=== PATIENT | female | born 1940 | race Caucasian/White ===

== ENCOUNTER → 2019-04-12 13:22 | Outpatient (CLI) | payer MEDICARE, OTHER, SELFPAY | PROVIDERS: Referring Provider Family Medicine; Visit Provider Family Medicine | DX: R06.02 Shortness of breath (principal) | CPT/HCPCS: 85379 ==

== ENCOUNTER → 2019-06-07 | Outpatient (CLI) | payer MEDICARE, OTHER, SELFPAY ==
--- NOTE | 2019-06-07 09:19 | RAD_ITS ---
STUDY: X-RAY - ESOPHAGUS (BARIUM SWALLOW) WITH FLUOROSCOPY REASON FOR EXAM: Female, 78 years old. Gastroesophageal reflux. TECHNIQUE: 24 view(s) of the esophagus were obtained following swallowing of barium. FLUOROSCOPY TIME (if supplied): (0:31) minutes/seconds COMPARISON: None. FINDINGS: There is no demonstrated esophageal foreign body. There is no demonstrated stricture or mucosal abnormality. Normal gastroesophageal junction, without a demonstrated hiatal hernia. The patient ingested a 12 mm tablet of barium without any difficulty. There is atherosclerotic calcification of the aortic arch with tortuosity of the descending aorta. Normal visualized pulmonary parenchyma. Normal visualized osseous structures of the thorax. RAD/Esophagus Only IMPRESSION: Normal plain film x-ray examination (barium swallow) of the esophagus. Electronically Signed: Jason Alexandre, at 8:41 EDT , Service support ,
== END | disposition home or self-care (01) ==
LOC: RAD 09:17
PROVIDERS: Family Provider Family Medicine; PCP Family Medicine; Referring Provider Nurse Practitioner Adult Health; Visit Provider Nurse Practitioner Adult Health
DX: K21.9 Gastro-esophageal reflux disease without esophagitis (principal); R13.10 Dysphagia, unspecified
CPT/HCPCS: 74220

== ENCOUNTER 2019-10-11 12:51 | Emergency (ER) | payer MEDICARE, OTHER, SELFPAY ==
[2019-10-11 12:51] VITALS: BP 126/68; PULSE 73; RESP 16; TEMP 36.3; O2SAT 95; BMI 39.2
--- NOTE | 2019-10-11 13:14 | EKG12_ITS ---
Test Reason : POSS AFIB Blood Pressure : / mmHG Vent. Rate : 064 BPM Atrial Rate : 064 BPM P-R Int : 212 ms QRS Dur : 080 ms QT Int : 440 ms P-R-T Axes : 079 019 029 degrees QTc Int : 453 ms Suspect unspecified pacemaker failure Sinus rhythm with 1st degree A-V block with Premature supraventricular complexes Otherwise normal ECG Confirmed by JULIANE FRIED, XUAN ([id number]), newspaper editor managing RAJEEV MCKENNA ([id number]) on 10/12/2019 1:54:55 PM Referred By: DAVID Confirmed By:XUAN CARDOOZ MD
[2019-10-11 13:41] LABS: Absolute Lymphocyte Count 2.11 X10^3/uL (0.83-4.51); Absolute Neutrophil Count 5.7 X10^3/uL (2.0-7.7); Basophil% 1.1 % (0-1); Eosinophil# 0.19 X10^3/uL; Eosinophils% 2.1 % (0-5); Hematocrit 36.3 % (37-47); Hemoglobin 11.3 g/dL (12.0-15.0); Lymphocyte # 2.11 X10^3/ul (4.0); Lymphocyte % 23.3 % (19-41); Mean Corp Hgb Conc 31.1 g/dL (32-36); Mean Corpuscular Hgb 26.7 pg (27.0-32.0); Mean Corpuscular Volume 85.6 fL (81-99); Mean Platelet Vol. 9.3 fl (6.2-12.0); Monocyte# 0.93 X10^3/uL; Monocyte% 10.3 % (0-10); NRBC Flagged by Analyzer 0 % (0-5); Neutrophil # 5.72 X10^3/uL (2.7-7.7); Platelet Count 285 K/mm3 (150-450); RBC Distribution Width CV 15.1 % (11.6-14.6); RBC Distribution Width SD 47.3 fl (35.1-43.9); Red Blood Count 4.24 M/mm3 (4.2-5.4); White Blood Count 9.1 K/mm3 (4.4-11.0)
[2019-10-11 13:56] LABS: Anion Gap 7 (5-15); BUN 15 mg/dL (7-18); BUN/Creat Ratio 18.3 RATIO (10-20); Calcium,Total 8.9 mg/dL (8.5-10.1); Chloride 105 mmol/L (98-107); Creatinine, Serum 0.82 mg/dL (0.55-1.02); EST Glomerular Filtration Rate 72 mL/min (>60); Est Glom Filt Rate - Afr Amer 87 mL/min (>60); Estimated Creatinine Clearance 50.88 ml/min; Glucose 94 mg/dL (74-106); Potassium 3.7 mmol/L (3.5-5.1); Sodium Level 138 mmol/L (136-145)
--- NOTE | 2019-10-11 14:19 | ED.VISSUMM ---
- ER Visit Summary Date of Service: 10/11/19 Chief Complaint: Questionable new onset atrial fibrillation History of Present Illness: The patient is a 79 F who comes in from the outpatient [facility]. She was getting outpatient test for an upcoming surgery. They did an EKG and they were concerned about new onset atrial fibrillation. Patient has no history of this. She denies palpitations or heart racing. She did have an episode of chest pain a week ago that lasted for 10 minutes and then went away. She saw Dr. Valles with cardiology in the past and has nitroglycerin at home to use if she gets chest pain. She also feels a little bit weak but states that this is chronic. Physical Examination: Vital signs reviewed. HEENT exam unremarkable. Heart is regular rate and rhythm without murmurs. Lungs are clear to auscultation. Abdomen is soft and nontender. Extremities reveal no edema. Skin exam normal. Neurologic exam normal. Test Results: EKG here is a sinus rhythm with multiple PACs. No ST changes. Hemoglobin 11.3. Troponin normal. Emergency Department Course and Treatment: The patient had an EKG which is a sinus rhythm with multiple PACs. She has a spinal stimulator which likely caused artifact which caused a computer misinterpretation of the outpatient EKG. She clearly has P waves on this EKG in the emergency department. Her laboratory studies are unremarkable. I feel she can be discharged. 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 I will give her the follow-up information with Dr. Armenta Treatment Plan: [] Disposition: Discharge Impression: Weakness This note was generated with [employer] dictation software. It may contain incorrect words, spelling, and punctuation that were not noted in review of the chart prior to signing ED Disposition - Plan for ED Patient: Referrals: Shawn Bauer MD [Primary Care Provider] -
--- NOTE | 2019-10-11 14:22 | ED.DEP ---
ED Disposition - Plan for ED Patient: Disposition: Home or Assisted Living Instructions: WEAKNESS, Unk Cause Referrals: Shawn Bauer MD [Primary Care Provider] - Samuel Armenta MD [STAFF PHYSICIAN] -
== END 2019-10-11 14:39 | disposition home or self-care (01) ==
PROVIDERS: Emergency Provider Emergency Medicine; Family Provider Family Medicine; PCP Family Medicine
DX: R53.1 Weakness (principal)
CPT/HCPCS: 80048; 84484; 85025; 93005; 99282; A4216

== ENCOUNTER → 2019-11-03 14:44 | Outpatient (CLI) | payer MEDICARE, OTHER, SELFPAY ==
[2019-11-03 12:32] VITALS: BMI 39.1
[2019-11-03 16:47] LABS: BNP,B-Type NATRIURETIC PEPTIDE 112.5 pg/mL (0-100)
== END ==
PROVIDERS: Family Provider Family Medicine; PCP Family Medicine; Referring Provider Internal Medicine Cardiovascular Disease; Visit Provider Internal Medicine Cardiovascular Disease
DX: I10 Essential (primary) hypertension (principal); R06.09 Other forms of dyspnea
CPT/HCPCS: 36415; 83880

== ENCOUNTER 2020-05-09 05:54 | Emergency (ER) | payer MEDICARE, OTHER, SELFPAY ==
[2019-11-03 12:32] VITALS: BMI 39.1
[2020-05-09] VITALS (8 sets, daily range): BP systolic 167–198; BP diastolic 50–79; PULSE 63–76; RESP 18–24; TEMP 36.4–36.8; O2SAT 92–99; BMI 44.4
--- NOTE | 2020-05-09 06:05 | RAD_ITS ---
STUDY: X-RAY CHEST REASON FOR EXAM: Female, 79 years old. C/O COUGH AND SOB -- WAS JUST TAKEN OFF OF DIURETIC LAST WEEK TECHNIQUE: Single AP portable view of the chest. COMPARISON: Prior comparison studies are not available for review at this time. FINDINGS: The interstitial markings are mildly prominent at the lung bases. There is a blunted appearance of the left costophrenic angle. There is mild cardiac enlargement. Normal mediastinum and bassam. Normal visualized pulmonary arteries. Normal visualized aortic arch and descending thoracic aorta. There are diffuse degenerative changes of the visualized thoracic spine. Normal visualized ribs, clavicles, and shoulders. There is no demonstrated abnormality of the visualized soft tissue structures of the upper abdomen. RAD/Chest 1 View (Portable) IMPRESSION: There is increased density at the left lung base at the costophrenic angle which may represent a small left effusion with atelectasis. Interstitial markings are prominent in the lung bases suggesting atelectasis possible developing infiltrates. Electronically Signed: Gabriela Salinas MD at 6:56 EDT Tel , Service support ,
--- NOTE | 2020-05-09 06:05 | EKG12_ITS ---
Test Reason : SOB Blood Pressure : / mmHG Vent. Rate : 070 BPM Atrial Rate : 070 BPM P-R Int : 228 ms QRS Dur : 082 ms QT Int : 452 ms P-R-T Axes : 040 019 048 degrees QTc Int : 488 ms Suspect unspecified pacemaker failure Sinus rhythm with 1st degree A-V block with Premature supraventricular complexes Otherwise normal ECG Confirmed by OSIRIS DOMINGUEZ ([id number]), editor farm journal YESY CENTENO ([id number]) on 05/11/2020 7:37:59 AM Referred By: PIETRO Confirmed By:OSIRIS DOMINGUEZ
--- NOTE | 2020-05-09 06:07 | ED.DCSUM_ITS ---
- ER Visit Summary Date of Service: 05/09/20 Chief Complaint: Progressively more short of breath since May 05 after her doctor stopped her hydrochlorothiazide History of Present Illness: The patient is a 79 F history of COPD not on O2, hypertension and colitis. Patient states that she has been progressively short of more short of breath since about May 05. She has had a problem recently with a rash that they thought was secondary to medication. Her doctor made the decision to stop her hydrochlorothiazide. She denies chest pain. She denies hemoptysis. She has had increased swelling in both lower extremities. No prior history of DVT or PE. She denies any melena. No fever. She does have a non productive cough. Physical Examination: Older female accompanied by her son. Initial vital signs are stable and afebrile. Her initial blood pressure was 1 7761. Pulse ox is 95 % on room air she is afebrile. She does not look septic or toxic. HEENT exam unremarkable. Neck nontender no lymphadenopathy. No JVD. Lungs equal and symmetrical. Few scattered expiratory wheezes bilaterally. No rales no rhonchi. Heart regular rhythm rate about 80 no murmur. Abdomen soft nontender normal bowel sounds no peritoneal signs. Obese. Patient moving all 4 extremities. She has 1+ pitting edema both lower extremities. There is no cords. Calves are nontender. Neurologically she is awake alert with no focal motor deficits. Test Results: Chest portable 1 view showed vascular congestion otherwise no acute abnormality. Read both by the radiologist and myself. EKG shows sinus rhythm rate of 70 with a first-degree AV block. Unchanged from prior EKG. CBC showed a white count 1.8. Hemoglobin of 10.2 with her baseline being 11. No bands. Chemistries unremarkable normal creatinine and gap. LFTs unremarkable. Troponin normal. BNP is pending. Both the BNP results in the COVID test will be checked by the oncoming morning physician. Emergency Department Course and Treatment: Older female with nonproductive cough and shortness of breath progressively worsened after stopping her hydrochlorothiazide. Differential diagnosis would include CHF, pulmonary edema also rule out DC, pneumonia, COVID 19 versus other etiologies. Treated with a dose of IV Lasix in the emergency department. Repeat exam patient is doing well at 7:45 AM. I think her history and her exam with bilateral lower extremity edema and her chest x-ray are consistent with vascular congestion. Historically makes sense because they just took her off her hydrochlorothiazide several days ago. Treatment Plan: Patient be started on Lasix 40 mg a day. Follow-up with her primary care physician. Watch her blood pressures closely. Return if feeling worse. Clinically she has no obvious signs of this being an acute infection or cardiac event. She has no history or substantial risk factors for PE. Disposition: Discharge Impression: Acute dyspnea secondary to pulmonary edema History of COPD History of hypertension This note was generated with [employer] software. It may contain incorrect words, spelling, and punctuation that were not noted in review of the chart prior to signing <Cecilio Huntley - Last Filed: 05/09/20 08:09> - ER Visit Summary Took over care of this patient. After the Lasix, she felt like she needed to urinate but had a hard time so nurses put a Cortes catheter in her temporarily, and after a couple hours of waiting for her COVID-19 test to come back, which was negative, she put out a total of almost 3 L of urine. She felt much better, she was able to ambulate without hypoxemia, and she was hypoxic in the 80s with light exertion just prior to the Lasix. She wants to go home. I think that is reasonable. There is a prescription for Lasix written for her. Her blood pressure is elevated but she is supposed to be on double the medication according to her doctors new advice, and she did not double up on it yet today, she will do that now and follow-up with her doctor. We discussed reasons to return and they are comfortable with that plan. Of note, her BNP returned at around 250 which is a little elevated and consistent with fluid overload, making Lasix the appropriate treatment for now. This note was generated with [employer] software. It may contain incorrect words, spelling, and punctuation that were not noted in review of the chart prior to signing <Danny Contreras - Last Filed: 05/09/20 11:25> ED Disposition <Cecilio Huntley - Last Filed: 05/09/20 08:09> <Danny Contreras - Last Filed: 05/09/20 11:25> - Plan for ED Patient: Disposition: Home or Assisted Living Instructions: ED Dyspnea Prescriptions: Furosemide [Lasix] 40 mg PO DAILY #30 tab Prescription Printed Referrals: Shawn Bauer MD [Primary Care Provider] - As soon as possible Additional Instructions: I am going to start you on Lasix which should decrease the fluid collection and swelling in her legs and help your breathing. You will take 1 pill a day. Watch her blood pressure because this may lower your blood pressure but it works similar to your prior higher your chlorothiazide. Follow-up with your doctor this week to ensure that you are improving. Return to the ER if you are feeling worse.
[2020-05-09 06:21] LABS: Absolute Lymphocyte Count 1.11 X10^3/uL (0.83-4.51); Absolute Neutrophil Count 9.4 X10^3/uL (2.0-7.7); Basophil# 0.09 X10^3/uL; Basophil% 0.8 % (0-1); Eosinophil# 0.14 X10^3/uL; Eosinophils% 1.2 % (0-5); Hematocrit 33.6 % (37-47); Hemoglobin 10.2 g/dL (12.0-15.0); Lymphocyte # 1.11 X10^3/ul (4.0); Lymphocyte % 9.4 % (19-41); Mean Corp Hgb Conc 30.4 g/dL (32-36); Mean Corpuscular Hgb 26.3 pg (27.0-32.0); Mean Corpuscular Volume 86.6 fL (81-99); Monocyte# 1.02 X10^3/uL; Monocyte% 8.7 % (0-10); NRBC Flagged by Analyzer 0 % (0-5); Neutrophil # 9.38 X10^3/uL (2.7-7.7); Neutrophil % 79.6 % (47-70); Platelet Count 294 K/mm3 (150-450); RBC Distribution Width CV 15.2 % (11.6-14.6); RBC Distribution Width SD 47.6 fl (35.1-43.9); Red Blood Count 3.88 M/mm3 (4.2-5.4); White Blood Count 11.8 K/mm3 (4.4-11.0)
--- NOTE | 2020-05-09 06:32 | ED.RN ---
RECEIVED CALL FROM LAB, BTMP RESULTS WILL NOT RETURN UNTIL APPROX 0800 D/T QC.
[2020-05-09 06:39] LABS: ALB/GLOB Ratio 0.6 RATIO (0.9-2.4); AST(SGOT) 19 U/L (15-37); Alanine Aminotransfer ALT/SGPT 20 U/L (13-56); Albumin, Serum 3.2 g/dL (3.2-5.0); Alkaline Phosphatase 126 U/L (45-117); Anion Gap 7 (5-15); BUN 13 mg/dL (7-18); BUN/Creat Ratio 17.4 RATIO (10-20); Chloride 102 mmol/L (98-107); Creatinine, Serum 0.75 mg/dL (0.55-1.02); EST Glomerular Filtration Rate 80 mL/min (>60); Est Glom Filt Rate - Afr Amer 96 mL/min (>60); Estimated Creatinine Clearance 38.35 ml/min; Glucose 125 mg/dL (74-106); Potassium 3.6 mmol/L (3.5-5.1); Protein, Total 8.2 g/dL (6.4-8.2); Sodium Level 137 mmol/L (136-145)
[2020-05-09 06:50] LABS: Lactic Acid 2.6 mmol/L (0.4-1.9)
--- NOTE | 2020-05-09 08:03 | ED.DEP ---
ED Disposition - Plan for ED Patient: Disposition: Home or Assisted Living Instructions: ED Dyspnea Prescriptions: Furosemide [Lasix] 40 mg PO DAILY #30 tab Prescription Printed Referrals: Shawn Bauer MD [Primary Care Provider] - As soon as possible Additional Instructions: I am going to start you on Lasix which should decrease the fluid collection and swelling in her legs and help your breathing. You will take 1 pill a day. Watch her blood pressure because this may lower your blood pressure but it works similar to your prior higher your chlorothiazide. Follow-up with your doctor this week to ensure that you are improving. Return to the ER if you are feeling worse.
[2020-05-09 08:27] LABS: BNP,B-Type NATRIURETIC PEPTIDE 249.9 pg/mL (0-100)
[2020-05-09] MEDS: Furosemide 40 MG/4 ML Vial IV (08:42)
--- NOTE | 2020-05-09 08:44 | ED.RN ---
pt sob with moving around in bed. slight audible wheeze heard. pt given morning meds and given lasix 40 mg thru [address] rosenberg aware will wait a bit and attempt to get pt up.
[2020-05-09 10:18] LABS: Reflex Lactate? Y
--- NOTE | 2020-05-09 10:46 | ED.RN ---
no repeat lactic acid per dr rosenberg. plan to dc pt
[2020-05-09 10:56] LABS: Probe Check N; SARSInt. QC ok y
--- NOTE | 2020-05-09 11:59 | ED.RN ---
IV DC'ED, CATHETER INTACT, SMALL GAUZE DRESSING PLACED. DISCHARGE INSTRUCTIONS GIVEN TO AND REVIEWED WITH PATIENT, PATIENT DENIES QUESTIONS OR CONCERNS AND VOICES UNDERSTANDING OF DISCHARGE INSTRUCTIONS. PT AMBULATES OUT OF ROOM WITH USE OF WALKER WITHOUT ISSUE.
== END 2020-05-09 12:00 | disposition home or self-care (01) ==
PROVIDERS: Emergency Provider Emergency Medicine; PCP Family Medicine
DX: R06.00 Dyspnea, unspecified (principal); J81.1 Chronic pulmonary edema; J44.9 Chronic obstructive pulmonary disease, unspecified; I10 Essential (primary) hypertension
CPT/HCPCS: 71045; 80053; 83605; 83880; 84484; 85025; 87040; 87635; 93005; 96374; 99285; G2023; A4216; J1940; U0003

== ENCOUNTER 2025-02-17 03:03 | Emergency (ER) | payer MEDICARE, OTHER, SELFPAY ==
[2025-02-17 03:04] VITALS: BP 195/84; PULSE 85; RESP 19; TEMP 36.5; O2SAT 95; BMI 34.6
--- NOTE | 2025-02-17 03:24 | CT_ITS ---
EXAM: Noncontrast CT of the brain. CLINICAL HISTORY: CONFUSION COMPARISON: None available TECHNIQUE: Contiguous unenhanced axial CT images were obtained through the brain. Sagittal and coronal reformats were created. CT dose modulation was performed to obtain diagnostic images at lowest achievable dose. FINDINGS: Bones of the calvarium are intact. Paranasal sinuses and mastoid air cells are clear. Extracranial soft tissues unremarkable except for mild left frontal soft tissue swelling image 24 axial images. Prominence of the cortical sulci and ventricular system, compatible with mild brain parenchymal atrophy. No acute intracranial hemorrhage. There are [id number] patchy areas of decreased attenuation in the deep and periventricular white matter structures of the cerebral hemispheres. Basilar cisterns are clear. No acute abnormality of the posterior fossa. CT/Brain/Head without Contrast IMPRESSION: No definite acute intracranial abnormality. Mild brain parenchymal atrophy with [id number] probable chronic small-ves igor ischemic changes. Mild left frontal soft tissue swelling. No underlying skull fracture. If there are persistent symptoms or clinical concern, follow-up MRI or CT brain in 12-24 hours. [facility]
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
--- NOTE | 2025-02-17 03:57 | EX.ED.DYSGE1 ---
HPI History of Present Illness Chief Complaint: Confusion Informant: patient and family Narrative Narrative: Patient is an 84-year-old female with past medical history of hypertension hyperlipidemia and hypothyroidism. She was recently evaluated for dementia and according to son falls somewhere on the middle of the spectrum. He states that this evening he called her stating there were 3 men in her house. He states he went over and confirm no one else was in the house and decided to take her back to his house. He states despite the change in location she still complained of hallucinations and at times would not even recognize who he was. He states that the only change in her medication is that her amlodipine has been changed from 10 mg to 7.5. He states that she does not have a history of alcohol abuse nor benzodiazepine abuse and he has no concern for any type of withdrawal causing her hallucinations. He does have concern for potential infection such as UTI making her symptoms worse and with this was brought in for evaluation. Upon arrival to the ER the patient knows her name where she is at what year it is who her son is but does adamantly admit and believe that there were multiple people in her house this evening [facility] Medical History (Updated 02/17/25 @ 06:[address] Jeff Kim, DO) Dyspnea Chest pain GERD (gastroesophageal reflux disease) Iron deficiency anemia Anxiety Obesity Hypothyroidism Essential (primary) hypertension History of hyperlipidemia Home Medications ?Medication ?Instructions ?Recorded ?Last Taken ?Type amlodipine 10 mg tablet 10 mg PO DAILY 10/11/19 Unknown History dexlansoprazole 60 mg 60 mg PO DAILY 10/11/19 Unknown History capsule,biphase delayed release ergocalciferol (vitamin D2) 1,250 50,000 unit PO QMONTH 10/11/19 Unknown History mcg (50,000 unit) capsule levothyroxine 112 mcg tablet 112 mcg PO DAILY 10/11/19 Unknown History metoprolol succinate 50 mg 50 mg PO DAILY 10/11/19 Unknown History tablet,extended release 24 hr simvastatin 20 mg tablet 20 mg PO QHS 10/11/19 Unknown History valsartan 160 mg tablet 320 mg PO DAILY 10/11/19 Unknown History benzonatate 100 mg capsule 200 mg PO TID #40 caps 11/03/19 Unknown History diazepam 5 mg tablet 5 mg PO QHS #60 tabs 11/03/19 Unknown History dicyclomine 20 mg tablet 20 mg PO TID 11/03/19 Unknown History guaifenesin 600 mg tablet, 600 mg PO BID 11/03/19 Unknown History extended release 12 hr (Mucinex) tolterodine 2 mg capsule,extended 2 mg PO DAILY 11/03/19 Unknown History release 24 hr (Detrol LA) albuterol sulfate 90 mcg/actuation 2 puff inhalation Q4H PRN PRN Cough 05/09/20 Unknown History aerosol inhaler furosemide 40 mg tablet 40 mg PO DAILY #30 tabs 05/09/20 Unknown Rx umeclidinium 62.5 mcg/actuation 1 puff IH DAILY 05/09/20 Unknown History blister powder for inhalation amlodipine 2.5 mg tablet 2.5 mg PO DAILY 02/17/25 Unknown History amlodipine 5 mg tablet 5 mg PO DAILY 02/17/25 Unknown History apixaban 5 mg tablet (Eliquis) 5 mg PO BID 02/17/25 Unknown History ferrous sulfate 325 mg (65 mg 325 mg PO DAILY 02/17/25 Unknown History iron) tablet levothyroxine 137 mcg tablet 137 mcg PO DAILY disorder of 02/17/25 Unknown History thyroid gland methylprednisolone 4 mg tablets in mg PO 02/17/25 Unknown History a dose pack nitroglycerin 0.4 mg sublingual 0.4 mg sublingual PRN PRN angina 02/17/25 Unknown History tablet vibegron 75 mg tablet (Gemtesa) 75 mg PO DAILY 02/17/25 Unknown History Allergy/AdvReac Type Severity Reaction Status Date / Time aspirin Allergy Unknown Verified 02/17/25 03:04 Bleach (Sodium Hypochlorite) Allergy Rash Verified 02/17/25 03:04 buspirone (From BuSpar) Allergy Unknown Verified 02/17/25 03:04 nitrofurantoin (From Allergy Hives Verified 02/17/25 03:04 Macrobid) oxybutynin Allergy Hives Verified 02/17/25 03:04 budesonide (From Symbicort) AdvReac PT UNABLE Verified 02/17/25 03:04 TO RESPOND-NEEDS F/U formoterol (From Symbicort) AdvReac PT UNABLE Verified 02/17/25 03:04 TO RESPOND-NEEDS F/U ibuprofen AdvReac Other Verified 02/17/25 03:04 oxycodone AdvReac Other Verified 02/17/25 03:04 ranitidine (From Zantac) AdvReac PT UNABLE Verified 02/17/25 03:04 TO RESPOND-NEEDS F/U Family History Sister Hypertension Cancer kidney Father Hypertension Daughter Breast cancer Mother Heart disease Surgical History Status post insertion of spinal cord stimulator History of bladder surgery History of knee replacement History of hysterectomy History of thyroidectomy Social History (Updated 11/03/19 @ 14:[address] Samuel Armenta MD) Smoking Status: Former smoker ROS ROS ED Constitutional Constitutional ED: Denies chills or fever(s) Eyes Eyes: Denies change in vision or diplopia ENT ENT ED: Denies sore throat Cardiovascular Cardiovascular: Denies chest pain Respiratory/Chest Respiratory/Chest: Denies cough or dyspnea Gastrointestinal Gastrointestinal: Denies abdominal pain, diarrhea, nausea or vomiting Genitourinary Genitourinary ED: Denies dysuria Musculoskeletal Musculoskeletal: Denies myalgias Integumentary Denies rash Neurologic Neurologic: Denies headache(s) Hematologic/Lymphatic Hematologic/Lymphatic: Denies easy bleeding or easy bruising EXAM Physical Exam Const Vital Signs: 02/17/25 03:04 02/17/25 04:04 02/17/25 05:00 Temperature 97.7 F L Temperature Source Oral Pulse Rate 85 78 79 Respiratory Rate 19 H 18 18 Blood Pressure 195/84 H 178/86 H Blood Pressure Mean 121 116 Pulse Ox 95 96 96 Oxygen Delivery Method Room Air Room Air Positive well nourished, well developed and obese General Appearance ED: well developed; Negative for pallor Nutritional Appearance: obese HEENT Reports moist mucous membranes HEENT Narrative: Normocephalic atraumatic No signs of infection noted in the posterior pharynx Eyes PERRL and EOMs intact bilaterally General Eye ED: Negative for scleral icterus Neck supple Neck Narrative: No nuchal rigidity or meningeal signs noted Resp normal respiratory effort and clear to auscultation bilaterally Resp Narrative: Breath sounds are diminished throughout but overall clear to auscultation without signs of respiratory distress Cardio regular rate and regular rhythm Rate: other Other Details: Heart is regular rate and rhythm Radial and carotid pulses are equal and symmetric GI normal to inspection, nondistended, normoactive bowel sounds, non-tender, non-distended and no masses GI Narrative: No voluntary guarding or rigidity or pulsatile mass Auscultation: normoactive bowel sounds Palpation: soft Extremity normal to inspection Neuro oriented x3, CN's II-XII intact bilaterally and no sensory deficits noted Neuro Narrative: GCS of 15 Cranial nerves II through XII are grossly intact without focal neurologic deficit No pronator drift no dysmetria no truncal ataxia NIH stroke scale score of 0 Patient does admit to seeing 3 shadowy men in her house. She states they would say her name but not answer any of her questions Patient denies seeing any hallucinations in the ER Sensorium / Orientation: alert Motor Exam: strength 5/5 throughout Psych mental status grossly normal Skin no rashes or lesions noted and no wounds General Skin Exam: Negative for jaundice or pallor MDM MDM MDM Narrative Medical decision making narrative: The patient arrived to the ER hypertensive but has a past medical history of this. She reported hallucinations and her son confirm this and she was adamant that there were men in her house. In order to check for potential cause such as brain mass or bleed a CT was obtained which revealed no obvious finding. As patient may have delirium worsening dementia secondary to UTI a urine sample was obtained. Urine showed +3 bacteria but there is no white blood cells and it is nitrite negative and therefore the bacteria in urine is most likely normal jey and therefore the urine to be sent for culture but I do not feel there is need to start her on antibiotics at this time. While in the ER the patient was now having hallucinations of little children running throughout the ER in her room. Based on the fact she lives alone and she has been having persistent hallucinations with no obvious cause by CT scan or urine sample I do feel that further evaluation by psychiatry would be appropriate. Therefore blood work will be obtained to ensure medical clearance and then psychiatry can evaluate her for potential [facility] placement The patient's visual hallucinations continued to worsen in the ER and this lines up more closely with her report the son witnessed while at the patient's house and that his home. The patient's medical screening exam did not reveal an obvious cause for her hallucinations and in order to ensure her safety as there is concern that with her living alone she would inadvertently harm herself to evade the hallucinations I feel that admission is the safest option. Therefore the patient will be evaluated by psychiatry for potential [facility] placement The patient has been medically cleared from an emergency room standpoint for treatment/placement to psychiatric center History & Record Review Discussion w/independent historian: Patient and Family Lab Data Attestation: I reviewed the patient's lab results. Labs: Laboratory Results - last 24 hr 02/17/25 02/17/25 02/17/25 03:56 04:50 04:57 WBC 8.2 RBC 3.92 L Hgb 11.8 L Hct 36.2 L MCV 92.3 MCH 30.1 MCHC 32.6 RDW Std Deviation 49.0 H RDW Coeff of Raudel 14.5 Plt Count 254 MPV 9.7 Immature Gran % (Auto) 0.400 Neut % (Auto) 71.2 H Lymph % (Auto) 15.5 L [place] % (Auto) 9.3 Eos % (Auto) 2.4 Baso % (Auto) 1.2 H Absolute Neuts (auto) 5.9 Absolute Lymphs (auto) 1.27 Nucleated RBC % 0 Sodium 139 Potassium 4.3 Chloride 104 Carbon Dioxide 23.2 Anion Gap 11 BUN 13 Creatinine 0.74 Estim Creat Clear Calc 69.18 Est GFR (MDRD) Non-Af 81 BUN/Creatinine Ratio 18.2 Glucose 115 H Calcium 8.8 Total Bilirubin 0.21 Direct Bilirubin < 0.08 AST 26 ALT 10 Alkaline Phosphatase 95 Ammonia 35.6 Total Protein 7.4 Albumin 3.9 Globulin 3.6 TSH 4.510 H Urine Color Yellow Urine Clarity Clear Urine pH 6.0 Ur Specific [place] 1.020 Urine Protein 30 H Urine Glucose (UA) Normal Urine Ketones Negative Urine Occult Blood 50 H Urine Nitrite Negative Urine Bilirubin Negative Urine Urobilinogen Normal Ur Leukocyte Esterase 100 H Urine RBC 0-5 SEEN Urine WBC 0-5 SEEN Ur Squamous Epith Cells 0 SEEN Urine Bacteria 3+ Urine Mucus 0 SEEN Urine Opiates Screen NEGATIVE U Buprenorphine Qual NEGATIVE Ur Oxycodone Screen NEGATIVE Urine Methadone Screen NEGATIVE Urine Fentanyl Screen NEGATIVE Ur Barbiturates Screen NEGATIVE Ur Phencyclidine Scrn NEGATIVE Ur Amphetamines Screen NEGATIVE U Benzodiazepines Scrn NEGATIVE Urine Cocaine Screen NEGATIVE U Cannabinoids Screen NEGATIVE Ethyl Alcohol < 10.1 Radiography Diagnostic Testing: Clinical Impression(s) from Imaging Studies Brain CT 02/17/25 03:24 IMPRESSION: No definite acute intracranial abnormality. Mild brain parenchymal atrophy with [id number] probable chronic small-vessel ischemic changes. Mild left frontal soft tissue swelling. No underlying skull fracture. If there are persistent symptoms or clinical concern, follow-up MRI or CT brain in 12-24 hours. Reading [facility] Management Discussion w/another healthcare provider: Behavioral health Discharge Plan Triage Chief Complaint: Confusion ED Provider: Jeff Kim Dx/Rx/DC Orders Clinical Impression: Hypertension, Visual hallucinations, Hyperlipidemia, Hypothyroidism Prescriptions: No Action dicyclomine 20 mg tablet 20 mg PO TID tolterodine [Detrol LA] 2 mg capsule,extended release 24hr 2 mg PO DAILY diazepam 5 mg tablet 5 mg PO QHS Qty: 60 Patient Comments: TAKE 1 TABLET BY MOUTH TWICE A DAY guaifenesin [Mucinex] 600 mg tablet extended release 12hr 600 mg PO BID benzonatate 100 mg capsule 200 mg PO TID Qty: 40 Patient Comments: TAKE 2 CAPSULES BY MOUTH THREE TIMES DAILY NEEDED. metoprolol succinate 50 MG tablet extended release 24 hr 50 mg PO DAILY amlodipine 10 MG tablet 10 mg PO DAILY simvastatin 20 MG tablet 20 mg PO QHS ergocalciferol (vitamin D2) 50,000 UNIT capsule 50,000 unit PO QMONTH levothyroxine 112 MCG tablet 112 mcg PO DAILY valsartan 160 MG tablet 320 mg PO DAILY dexlansoprazole 60 MG capsule,biphase delayed releas 60 mg PO DAILY albuterol sulfate 1 PUFF inhaler 2 puff inhalation Q4H PRN PRN (Reason: Cough) umeclidinium 1 PUFF inhaler 1 puff IH DAILY furosemide 40 MG tablet 40 mg PO DAILY Qty: 30 0RF levothyroxine 137 mcg tablet 137 mcg PO DAILY ferrous sulfate 325 mg (65 mg iron) tablet 325 mg PO DAILY nitroglycerin 0.4 mg tablet, sublingual 0.4 mg sublingual PRN PRN (Reason: angina) Eliquis 5 mg tablet 5 mg PO BID amlodipine 2.5 mg tablet 2.5 mg PO DAILY amlodipine 5 mg tablet 5 mg PO DAILY Gemtesa 75 mg tablet 75 mg PO DAILY methylprednisolone 4 mg tablets,dose pack PO Primary Care Provider: Shawn Bauer Referrals: Shawn Bauer MD [Primary Care Provider] - Print Language: Armenian Disposition Disposition: Psychiatric Hospital or Unit
[2025-02-17 04:03] LABS: Mucous, Urine 0 SEEN /hpf (<or=2+); Squamous Epithelial Cells - UA 0 SEEN /hpf (5-10)
[2025-02-17 04:04] VITALS: BP 178/86; PULSE 78; RESP 18; O2SAT 96
[2025-02-17 04:14] LABS: Color, Urine Yellow (Yellow); Glucose, Dipstick Normal (Normal); Ketone-Dipstick Negative (Negative); Leukocyte Esterase-Dipstick 100 /ul (Negative); Nitrite-Dipstick Negative (Negative); Occult Blood-Urine 50 /ul (Negative); Protein-Dipstick 30 mg/dl (Negative); Urine Bilirubin Dipstick Negative (Negative); Urine Clarity Clear (Clear); Urine Urobilinogen Normal (Normal)
[2025-02-17 04:23] LABS: Bacteria 3+ /hpf (None Seen); Red Blood Cells-Urine 0-5 SEEN /hpf (0-5); White Blood Cells 0-5 SEEN /hpf (0-5)
[2025-02-17 05:00] VITALS: PULSE 79; RESP 18; O2SAT 96
[2025-02-17 05:12] LABS: Amphetamine Urine NEGATIVE (<1000 ng/mL); Barbiturate Urine NEGATIVE (< 200 ng/mL); Benzodiazepine Urine NEGATIVE (< 200 ng/mL); Buprenorphine Urine NEGATIVE (< 200 ng/mL); Cocaine Urine NEGATIVE (< 300 ng/mL); Fentanyl, Urine NEGATIVE; Methadone Urine NEGATIVE (< 300 ng/mL); Opiates Urine NEGATIVE (< 300 ng/mL); Oxycodone, Urine NEGATIVE (< 100 ng/mL); PCP Urine NEGATIVE (< 25 ng/mL); THC Urine NEGATIVE (< 50 ng/mL)
[2025-02-17 05:21] LABS: Absolute Lymphocyte Count 1.27 X10^3/uL (0.83-4.51); Absolute Neutrophil Count 5.9 X10^3/uL (2.0-7.7); Basophil% 1.2 % (0-1); Eosinophils% 2.4 % (0-5); Hematocrit 36.2 % (37-47); Hemoglobin 11.8 g/dL (12.0-15.0); Lymphocyte # 1.27 X10^3/ul (0.83-4.51); Lymphocyte % 15.5 % (19-41); Mean Corp Hgb Conc 32.6 g/dL (32-36); Mean Corpuscular Hgb 30.1 pg (27.0-32.0); Mean Corpuscular Volume 92.3 fL (81-99); Mean Platelet Vol. 9.7 fl (6.2-12.0); Monocyte# 0.76 X10^3/uL; Monocyte% 9.3 % (0-10); NRBC Flagged by Analyzer 0 % (0-5); Neutrophil # 5.85 X10^3/uL (2.7-7.7); Neutrophil % 71.2 % (47-70); Platelet Count 254 K/mm3 (150-450); RBC Distribution Width CV 14.5 % (11.6-14.6); Red Blood Count 3.92 M/mm3 (4.2-5.4); White Blood Count 8.2 K/mm3 (4.4-11.0)
--- NOTE | 2025-02-17 05:32 | ED.RN ---
[facility]IS[facility] CALLED CHART FAXED [facility] WILL BE EVALUATING WHEN MORNING STAFF COMES IN AT 0700
--- NOTE | 2025-02-17 05:37 | ED.RN ---
Patient is yelling at people to get out of her room. She is calling for the nurse stating Don't let them put it down my throat. telling people to get out of her bed. Patient became distress that they were grabbing her feet. Patient continues with auditory and visual hallucinations despite staff attempts to reorient.
[2025-02-17] MEDS: Ziprasidone IM 20 MG/ML VIAL 10 MG IM ×2 (05:41→07:54)
[2025-02-17 05:44] LABS: Ammonia 35.6 umol/L (11-51)
--- NOTE | 2025-02-17 05:45 | ED.RN ---
This nurse tech walked into the patient's room to give a nurse a band-aid while the nurse was administering a intramuscular medication. After the med was administered the patient thought this nurse tech was one of the men that she was seeing in her hallucinations. This nurse tech introduced himself to the patient and attempted to reorient her by holding a pen in his hand and asking the patient, what is in my hand. The patient then became slightly agitated and swatted this nurse tech's hand. This nurse tech then left the room, while two other nurses continued to reorient her.
[2025-02-17 05:47] LABS: Alcohol, Blood (Medical)-Serum < 10.1 mg/dL (<=10.0)
[2025-02-17 06:01] LABS: AST(SGOT) 26 U/L (<=31); Alanine Aminotransfer ALT/SGPT 10 U/L (<=34); Albumin, Serum 3.9 g/dL (3.4-4.8); Alkaline Phosphatase 95 U/L (35-104); Anion Gap 11 (5-15); BUN 13 mg/dL (4-19); BUN/Creat Ratio 18.2 RATIO (10-20); Bilirubin, Direct < 0.08 mg/dL (0.00-0.30); Calcium,Total 8.8 mg/dL (7.6-11.0); Carbon Dioxide 23.2 mmol/L (21.0-32.0); Chloride 104 mmol/L (98-108); Creatinine, Serum 0.74 mg/dL (0.70-1.20); EST Glomerular Filtration Rate 81 (>60); Estimated Creatinine Clearance 69.18 ml/min (50-250); Globulin 3.6 g/dL (2.2-4.2); Glucose 115 mg/dL (70-99); Potassium 4.3 mmol/L (3.3-5.1); Protein, Total 7.4 g/dL (5.9-8.4); Sodium Level 139 mmol/L (133-145); Total Bilirubin 0.21 mg/dL (0.00-1.30)
--- NOTE | 2025-02-17 07:33 | ED.RN ---
Crisis called and pt is referred to [facility], [facility] and [facility]
--- NOTE | 2025-02-17 07:56 | ED.RN ---
[facility] called to get information on the patient. They will present it to the DR and call back with acceptance or denial.
[2025-02-17 08:05] VITALS: BP 169/77; PULSE 82; RESP 14; O2SAT 97
--- NOTE | 2025-02-17 09:22 | ED.RN ---
[facility] DEN[facility]. PENDING AT [facility], [facility] HAS NO BEDS TODAY BUT WILL TAKE HER TOMORROW, AND REFERRED, HER GENERATIONS
--- NOTE | 2025-02-17 09:29 | EKG12_ITS ---
Test Reason : PLACEMENT Blood Pressure : */* mmHG Vent. Rate : 78 BPM Atrial Rate : * BPM P-R Int : * ms QRS Dur : 82 ms QT Int : 416 ms P-R-T Axes : * -4 25 degrees QTcB Int : 474 ms Atrial fibrillation Abnormal ECG When compared with ECG of 09-May-2020 06:26, Atrial fibrillation has replaced Sinus rhythm ST now depressed in Inferior leads Confirmed by JULIANE FRIED, XUAN ([id number]), purchase request editor YESY CENTENO ([id number]) on 02/21/2025 7:32:53 AM Referred By: Confirmed By: XUAN CARDOZO MD
[2025-02-17 13:27] VITALS: BP 139/56; PULSE 76; RESP 15; O2SAT 93
--- NOTE | 2025-02-17 14:38 | EKG12_ITS ---
Test Reason : CP Blood Pressure : */* mmHG Vent. Rate : 76 BPM Atrial Rate : * BPM P-R Int : * ms QRS Dur : 84 ms QT Int : 422 ms P-R-T Axes : * 4 8 degrees QTcB Int : 474 ms Atrial fibrillation Abnormal ECG Confirmed by JULIANE FRIED, XUAN ([id number]), commissioning editor NAKUL PEARCE ([id number]) on 02/18/2025 8:04:47 AM Referred By: Confirmed By: XUAN CARDOZO MD
[2025-02-17 14:47] VITALS: BP 139/56; PULSE 76; RESP 15; TEMP 36.5; O2SAT 93
--- NOTE | 2025-02-17 15:30 | CM.ED ---
Social Work SW was asked to speak to patient regarding placement as she stated she was confused about where she was going. Patients son stated that patient believed that she was going to [facility] and he was not correcting her at this time as he felt it would increase her behaviors is she knew she was going to [facility]. SW attempted to speak to patient, however patient was focused on her ability to see and where her watch was. SW also present when patient was getting picked up for transport, patient remained calm. Berta Gauthier, REVENUE INTEGRITY ANALYST, ACADEMIC AFFAIRS MANAGER
== END 2025-02-17 15:03 ==
PROVIDERS: Emergency Provider Emergency Medicine; PCP Family Medicine; Visit Provider Emergency Medicine
DX: R44.1 Visual hallucinations (principal); I10 Essential (primary) hypertension; E78.5 Hyperlipidemia, unspecified; E03.9 Hypothyroidism, unspecified; E66.9 Obesity, unspecified; K21.9 Gastro-esophageal reflux disease without esophagitis; D50.9 Iron deficiency anemia, unspecified; F41.9 Anxiety disorder, unspecified; Z79.890 Hormone replacement therapy; Z79.899 Other long term (current) drug therapy; Z87.891 Personal history of nicotine dependence
CPT/HCPCS: 36415; 70450; 80048; 80076; 80307; 81001; 82077; 82140; 84443; 85025; 87077; 87086; 87088; 87186; 93005; 96372; 99283; A4216; J3486